=== PATIENT | female | born 1965 | race Caucasian/White ===

== ENCOUNTER 2016-11-29 21:18 | Inpatient (IN) | payer MEDICARE ==
--- NOTE | ~2016-11-29 | PN ---
Unit #: [id number] #: [id number] Patient: ARIANNA KELLER [id number] [facility] [address] [place] [address] [id number] I MR#: [id number] NAME: ARIANNA KELLER. ROOM: P259 Age: 51 Sex: F Admission Date: 11/29/2016 : 1965 Attending Physician: Cheryl Villa M.D. Admitting Physician: Cheryl Villa M.D. Primary Care Physician: Primary Care Physician Ami DANGELO NOTES DATE OF SERVICE: 12/01/2016 SUBJECTIVE Ms. Keller is a 51-year-old white female, who was seen today and chart was reviewed and case was discussed with the staff. She has been anxious, withdrawn, and rather seclusive to herself. Meanwhile, she has been cooperative with treatment recommendations and has been taking medications and tolerating them fairly well with no reported side effects. MENTAL STATUS EXAMINATION Middle-aged white female, who was casually dressed with fair personal hygiene, appears to be in no acute distress or discomfort. She was awake and alert on interaction with intact orientation. Her mood was anxious and depressed with congruent affect. Her speech was slow and restricted in content. She reports some suicidal ideation, but denies any homicidal ideation. Her insight and judgment remain slightly impaired. TREATMENT PLAN 1. We will continue on her current medications and treatment protocol and we will monitor her response and make further adjustments as needed. 2. We will continue to follow up. Dictated by... Irma Sofia/davis TD: 12/03/2016 06:55 JOB #: [id number] [facility] PROGRESS NOTES Page 1 of 1 X Cheryl Villa MD X PROGRESS NOTE
--- NOTE | ~2016-11-29 | DS ---
Unit #: [id number] #: [id number] Patient: ARIANNA KELLER [id number] [facility] [address] [place] [address] [id number] I MR#: [id number] NAME: ARIANNA KELLER. ROOM: P259 Age: 51 Sex: F Admission Date: 11/29/2016 : 1965 Discharge Date: 12/04/2016 Attending Physician: Cheryl Villa M.D. Primary Care Physician: Primary Care Physician No DISCHARGE SUMMARY IDENTIFYING DATA Ms. Keller is a 51-year-old , disabled white female who is a resident of [place], [place] and is very well known to us from previous multiple encounters and was self-referred to the hospital on a voluntary basis. DISCHARGE DIAGNOSES Psychiatric: Major depressive disorder, recurrent, moderate, without psychotic features. Medical: Cirrhosis of the liver, chronic pain. Stressors: Moderate psychosocial stressors. HISTORY OF PRESENT ILLNESS Please see initial psychiatric evaluation for details. PAST PSYCHIATRIC HISTORY Please see initial psychiatric evaluation for details. PAST MEDICAL HISTORY Please see initial psychiatric evaluation for details. HOSPITAL COURSE The patient was admitted to the adult psychiatric unit at [facility] phyllis Sotomayor and was oriented to the hospital environment. Routine p.r.n. medications were initiated, and she was started back on her home medications including her Elavil 100 mg at bedtime and was closely monitored. She was initially seen to be very withdrawn, depressed, and tearful, however, she was able to show a significant therapeutic response to the medications with improvement in depression and anxiety and was denying any suicidal ideations, intent, or plan and was willing to continue treatment on an outpatient basis and as such, it was decided that she will be maintained on current medications and will be discharged home. DISCHARGE MEDICATIONS Neurontin 800 mg q.i.d. for neuropathy, Elavil 100 mg at bedtime for depression, Proventil inhaler 2 puffs b.i.d. for asthma, aspirin 81 mg a day for coronary artery disease, Catapres 0.1 mg b.i.d. for hypertension, Cardizem 180 mg a day for hypertension, Lovenox 100 mg b.i.d. for hypercoagulability, and Colace 100 mg b.i.d. for constipation. DISCHARGE CONDITION Stable. PROGNOSIS Unit #: [id number] #: [id number] Patient: ARIANNA KELLER. Dictated by... Irma Sofia/davis TD: 12/04/2016 18:29 JOB #: [id number] DISCHARGE SUMMARY Page 1 of 1 X Cheryl Villa MD X DISCHARGE SUMMARY
--- NOTE | ~2016-11-29 | PN ---
Unit #: [id number] #: [id number] Patient: ARIANNA KELLER [id number] [facility] [address] [place] [address] [id number] I MR#: [id number] NAME: ARIANNA KELLER. ROOM: P259 Age: 51 Sex: F Admission Date: 11/29/2016 : 1965 Attending Physician: Cheryl Villa M.D. Admitting Physician: Cheryl Villa M.D. Primary Care Physician: Primary Care Physician Ami DANGELO NOTES DATE OF SERVICE 12/03/2016 DISCUSSION Ms. Keller is a 51-year-old white female with mood disorder who was seen today. Chart was reviewed and case was discussed with the staff. She has been anxious, withdrawn, and rather seclusive to herself. Meanwhile, she has been cooperative with treatment recommendations and has been taking the medications and tolerating them fairly well with no reported side effects. MENTAL STATUS EXAMINATION Middle-aged white female who is casually dressed with fair personal hygiene, appears to be in no acute distress or discomfort. She was awake and alert on interaction with intact orientation. Her mood is anxious and depressed with congruent affect. She denies any current suicidal or homicidal ideations and also denies any auditory or visual hallucinations. Her insight and judgment remain slightly impaired. TREATMENT PLAN 1. We will continue her on her current medications and treatment protocol. We will monitor her response and make further adjustments as needed. 2. We will continue to follow up. Dictated by... Cheryl Villa M.D. IAA/bzg TD: 12/04/2016 10:30 JOB #: [id number] Unit #: [id number] #: [id number] Patient: ARIANNA KELLER PROGRESS NOTES Page 1 of 1 X Cheryl Villa MD PROGRESS NOTE
--- NOTE | ~2016-11-29 | CO ---
Unit #: [id number] #: [id number] Patient: ARIANNA DEE [id number] [facility] [address] [place] [address] [id number] I MR#: [id number] NAME: ARIANNA DEE. ROOM: P259 Age: 51 Sex: F Admission Date: 11/29/2016 : 1965 Attending Physician: Cheryl Villa M.D. Primary Care Physician: Primary Care Physician No Consultation Date: 12/01/2016 CONSULTATION REPORT ORDERING PROVIDER Dr. Villa. REASON FOR CONSULTATION Pain. The patient was seen yesterday for her chronic pain and was prescribed Percocet 5 mg t.i.d. The patient was complaining because her home medications are for 10 mg of Percocet q.i.d. Her home medications were reviewed and it does appear that her primary care provider has been giving her 10 mg q.i.d. for at least a year. We will continue to prescribe for this dose and she needs to follow up with her primary care outpatient. Dictated by... Reny Peoples A.P.R.N. for Irma Elmore/davis TD: 12/01/2016 19:12 JOB #: [id number] CONSULTATION REPORT Page 1 of 1 X RENY PEOPLES APRN CONSULTATION REPORT
--- NOTE | ~2016-11-29 | PN ---
Unit #: [id number] #: [id number] Patient: ARIANNA KELLER [id number] [facility] [address] [place] [address] [id number] I MR#: [id number] NAME: ARIANNA KELLER. ROOM: P259 Age: 51 Sex: F Admission Date: 11/29/2016 : 1965 Attending Physician: Cheryl Villa M.D. Admitting Physician: Cheryl Villa M.D. Primary Care Physician: Primary Care Physician Ami DOE PROGRESS NOTES DATE December 02, 2016 DISCUSSION Ms. Keller is a 51-year-old white female, who was seen today and chart was reviewed and the case was discussed with the staff. She has been doing fairly well and has reported some improvement in her depression and anxiety and she has been calm and cooperative with the treatment recommendations. She has been taking the medications and tolerating them fairly well with no reported side effects. MENTAL STATUS EXAMINATION Middle-aged white female, who was casually dressed with fair personal hygiene and appears to be in no acute distress or discomfort. The patient was awake and alert on interaction with intact orientation. Her mood was anxious and depressed with a congruent affect. She denies any current suicidal or homicidal ideations, and also denies any auditory or visual hallucinations. Her insight and judgment remain slightly impaired. TREATMENT PLAN 1. We will continue her on her current medications and treatment protocol, and will monitor her response to the medications, and make further adjustments as needed. 2. We will continue to followup. Dictated by... Irma Sofia/eddie TD: 12/04/2016 05:11 JOB #: [id number] Unit #: [id number] #: [id number] Patient: ARIANNA KELLER PROGRESS NOTES Page 1 of 1 X Cheryl Villa MD PROGRESS NOTE
--- NOTE | ~2016-11-29 | CO ---
Unit #: [id number] #: [id number] Patient: MACI DEE [id number] [place] [address] [id number] I MR#: [id number] NAME: MACI DEE. ROOM: P259 Age: 51 Sex: F Admission Date: 11/29/2016 : 1965 Attending Physician: Cheryl Villa M.D. Consultation Date: 11/30/2016 CONSULTATION REPORT SUBJECTIVE Maci has complaints of chronic pain. She sees Dr. Herndon, who prescribes oxycodone 10 mg q.i.d. for her and she would like to have this restarted. On 11/21/2016, she went to [facility] after a fall and was diagnosed with a left hand fracture and a right shoulder dislocation. She currently has a cast on her left hand. She also has reports of recent liver biopsy and was found to be in liver failure and is having whole body pain as well. She has no other complaints. PHYSICAL EXAMINATION CARDIAC: Regular rate and rhythm. No murmur, gallop, or rub. RESPIRATORY: Clear to auscultation bilaterally. ABDOMEN: Bowel sounds positive in all quadrants. MUSCULOSKELETAL: Left hand casted after a fracture. ASSESSMENT AND PLAN Chronic and acute pain. We will begin oxycodone 5 mg p.o. q.8 hours p.r.n. pain. The patient is instructed to follow up with Dr. Herndon after discharge for continued prescriptions. No prescriptions will be given for oxycodone upon discharge. Dictated by... Aida Orr/davis TD: 11/30/2016 13:23 JOB #: [id number] CONSULTATION REPORT Page 1 of 1 X MELISSA LARA APRN X CONSULTATION REPORT
--- NOTE | ~2016-11-29 | HP ---
Unit #: [id number] #: [id number] Patient: MACI DEE [id number] [place] [address] [id number] MR#: [id number] NAME: MACI DEE. ROOM: P259 Age: 51 Sex: F Admission Date: 11/29/2016 : 1965 Attending Physician: Cheryl Villa M.D. Admitting Physician: Cheryl Villa M.D. Primary Care Physician: Primary Care Physician No HISTORY AND PHYSICAL HISTORY OF PRESENT ILLNESS Maci is a 51-year-old female admitted to [address] [place] [address] on 11/29/2016 for suicidal ideation and depression. PAST MEDICAL HISTORY 1. Anemia. 2. Type 2 diabetes. 3. Cirrhosis of the liver. 4. Hepatitis B and C. 5. Factor V Leiden. 6. History of afib. 7. Hypertension. 8. COPD. 9. GERD. 10. Patient reports possible cystic fibrosis. 11. Current left hand fracture. PAST SURGICAL HISTORY 1. Vaginal hysterectomy. 2. Cholecystectomy. 3. section x3. 4. Gastric bypass. ALLERGIES No known drug allergies. SOCIAL HISTORY Smokes 2 packs of cigarettes daily. No alcohol or illegal drug use. She is currently and living with her roommates. FAMILY HISTORY Noncontributory. REVIEW OF SYSTEMS CONSTITUTIONAL: No fever or chills. HEENT: Denies any sore throat, ear pain or runny nose. CARDIOVASCULAR: Denies chest pain, irregular heart rhythm or palpitations. CHEST: Denies shortness of breath or cough. No hemoptysis. GASTROINTESTINAL: Denies nausea, vomiting, diarrhea or chronic constipation. ENDOCRINE: Denies history of increased thirst or urination. No recent significant weight loss or gain. GENITOURINARY: Denies dysuria, frequency, or hematuria. Unit #: [id number] #: [id number] Patient: MACI DEE SKIN: Denies any rashes. HEMATOLOGIC: Denies history of increased bleeding or bruising. MUSCULOSKELETAL: Denies any hot, swollen joints. No generalized muscle pain. NEUROLOGIC: Denies problems with vision or speech. No frequent, severe headaches. No numbness, tingling or weakness in any extremities. Denies loss of bladder or bowel control. CURRENT MEDICATIONS 1. Gabapentin. 2. Elavil. 3. Proventil. 4. Ecotrin. 5. Catapres. 6. Lactulose. 7. Cardizem. 8. Lovenox. 9. Vistaril. 10. Viread. 11. Colace. PHYSICAL EXAMINATION GENERAL: VITAL SIGNS: Blood pressure 131/88, heart rate 109, temperature 97.8. HEIGHT: 5 feet 4. WEIGHT: 204 pounds. SKIN: Warm and dry without rash or lesion. HEENT: Normocephalic. TMs not viewed. Oral and nasal passages clear. Conjunctivae clear. PERRLA. EOMs intact. NECK: Supple without lymphadenopathy or thyromegaly. HEART: Regular rate and rhythm without murmur. LUNGS: Clear. ABDOMEN: Soft, nontender, without masses or hepatosplenomegaly. : Not done. EXTREMITIES: Fracture of her left hand. NEUROLOGICAL: Grossly within normal limits. Cranial Nerves: II: Visual hargrove are intact. III, IV AND : Extraocular movements are intact. Pupils are equal, round and reactive to light. V: Facial sensation is grossly normal. VII: Facial movements and expression are normal. VIII: Auditory acuity grossly intact. IX, X: Uvula is midline. Phonation is normal. XI: Patient shrugs shoulders and turns head normally. XII: Tongue protrudes in the midline. Sensory and Motor Function: Sensory and motor sensation is grossly normal. Motor: moves all extremities well. Coordination: Gait is normal. Deep Tendon Reflexes: Intact. IMPRESSION 1. Psychiatric admission. 2. Fracture of the left hand. 3. Anemia. 4. Type 2 diabetes. 5. Cirrhosis of the liver. 6. Hepatitis B and C. 7. Factor V Leiden. 8. Possible cystic fibrosis. 9. Morbid obesity. 10. History of afib. Unit #: [id number] #: [id number] Patient: MACI DEE 11. Hypertension. 12. Chronic obstructive pulmonary disease. 13. Gastroesophageal reflux disease. RECOMMENDATIONS PSYCHIATRIC: Per psychiatrist. MEDICAL: No contraindications to participate in facility's activities. MEDICAL PROGNOSIS Good. MEDICAL CONDITION Stable. Dictated by... Aida Orr/ramila TD: 11/30/2016 17:43 JOB #: [id number] HISTORY AND PHYSICAL Page 1 of 1 X MELISSA LARA APRN HISTORY AND PHYSICAL
--- NOTE | ~2016-11-29 | A ---
[facility] Nutrition Therapy DATE: 12/02/16 Patient: ARIANNA DEE Physician: CARMINE Address: [address] Room/Bed: [facility] [facility], Zip: [place] [address] Admit Date: 11/29/16 Date of : [birth year] Height: 5 4 Weight: [phone] NUTRITIONAL ASSESSMENT: REASON: CONSULT "PER DOCTOR" PATIENT ADMITTED FOR SI AND DEPRESSION PMH: CHF, HTN, LONG HX POLYSUBSTANCE ABUSE, A-FIB, HX OF CVA, COPD, GERD, WITHDRAWL SEIZURES, HEPATITIS B AND C, DM2, CHRONIC PAIN, HX GASTRIC BYPASS, LIVER CIRRHOSIS Anthropometrics: HT: 5'4", WT: 204#, BMI: 35, %IBW: 170 Labs: 12/02/16- NUTRITION LABS REVIEWED, NOTHING SIGNIFICANT Meds: ROXICODONE, VISTARIL, AMBIEN, NEURONTIN Assessment: CHART REVIEWED, EVENTS NOTED. PATIENT IS A 51 Y/O FEMALE ADMITTED FOR SI AND DEPRESSION. PATIENT IS CURRENTLY ON DISABILITY, LIVES IN AN APPARTMENT, SMOKES 1.5-2 PPD, AND DENIES CURRENT SUBSTANCE ABUSE. PATIENT IS POSITIVE FOR SI AND STATED THAT HER DOCTOR GAVEHER 6-8 MONTHS TO LIVE D/T LIVER FAILURE. UPON ADMIT PATIENT STATED AN "OKAY" APPETITE WITH FLUCTUATING WEIGHTS, AND THAT SHE'S HAD A 70# WEIGHT LOSS OVER LAST 6 MONTHS. WEIGHT HX PER MEDITECH SHOWS A 9# WEIGHT INCREASE OVER LAST 3 MONTHS, AND FLUCTUATING WEIGHTS BEWTEEN 195-245# OVER LAST 5 YEARS. NURSING REPORTS GOOD PO INTAKES. CONSULT ONLY STATES "PER DOCTOR" HOWEVER AFTER FURTHER INVESTIGATION AND DISCUSSING PATIENT WITH NURSING, THEY STATED PATIENT WOULD JUST LIKE MORE FOOD. PATIENT IS CURRENTLY ON A REGULAR DIET WITH LARGE PORTION ENTREES. PATIENT HAS VERY FREQUENT ADMISSIONS TO THIS FACILITY AND HAS A HX OF POOR COMPLIANCE WITH OUTPATIENT TREATMENT RECOMMENDATIONS. SHE HAS ALSO BEEN NON-COMPLIANT WITH MEDICATIONS PRIOR TO ADMIT. RD ASSESSED PATIENT 07/24- NOTE REVIEWED. PATIENT HAD A FALL ON 11/21/16 AND SUSTAINED A FRACTURE TO L-HAND AND A DISLOCATED R-SHOULDER. THERE ARE CURRENTLY NO SKIN OR GI ISSUES NOTED ATT AND PATIENT DID NOT SCORE ANY NUTRITIONAL RISK POINTS. PATIENT'S GLUCOSE LEVELS ARE WNL AND HER AST AND ALT LAB VALUES ARE ONLY SLIGHTLY ELEVATED. Dx: EXCESSIVE CALORIE INTAKE R/T CURRENT CONDITION AEB HIGH BMI, >110% IBW, 9# WEIGHT GAIN X 3 MONTHS Intervention: 1. REGULAR DIET WITH LARGE PORTIONS, 2. MEDS PER MD, 3. PSYCH Monitoring, Evaluation and Goals: 1. ADEQUATE PO INTAKES >50% OF MEALS 2. PREVENT, CORRECT MICRO/MACRO NUTRIENT DEFICIENCIES 3. PROMOTE A STEADY WEIGHT LOSS TOWARDS A HEALTHY BMI OF 19-25, PREVENT FURTHER WEIGHT [facility] Nutrition Therapy DATE: 12/02/16 Patient: ARIANNA DEE Physician: CARMINE Address: [address] [place] [address] Room/Bed: [id number], Zip: [place] [address] Admit Date: 11/29/16 Date of : [birth year] Height: 5 4 Weight: [phone] GAIN MONITOR: WEIGHTS, LABS, PO/FLUID INTAKES Recommendations: 1. CONTINUE REGULAR DIET TOLERATED. CONSIDER ADDING HEART HEALTHY TO CURRENT DIET ORDER TO PROMOTE A STEADY WEIGHT LOSS TOWARDS A HEALTHY BMI OF 19-25 2. RECOMMEND D/CING LARGE PORTION ENTREES D/T NO NUTRITIONAL NEED FOR INCREASED CALORIC INTAKE. IF PATIENT HAS C/O HUNGER PLEASE OFFER HEALTHY SNACKS BETWEEN MEALS 3. ENCOURAGE ADEQUATE PO AND FLUID INTAKES RD TO F/U PER PROTOCOL AND PRN R/T PATIENT MILDLY COMPROMISED Respectfully, YANIQUE GONSALEZ, RD, LD [employer] [facility] cc: client file
--- NOTE | ~2016-11-29 | PA ---
Unit #: [id number] #: [id number] Patient: ARIANNA KELLER [id number] [facility] [address] [place] [address] [id number] MR#: [id number] NAME: ARIANNA KELLER. ROOM: P259 Age: 51 Sex: F Admission Date: 11/29/2016 : 1965 Date of Assessment: Attending Physician: Cheryl Villa M.D. Admitting Physician: Cheryl Villa M.D. PSYCHIATRIC ASSESSMENT DATE OF SERVICE 11/30/2016. IDENTIFYING DATA Ms. Keller is a 51-year-old disabled white female, who is a resident of [place], [place], and is very well known to us from previous multiple encounters and was self-referred to the hospital on a voluntary basis. CHIEF COMPLAINT "Well, I have had several things going on last month. I have been trying to get my life together." HISTORY OF PRESENT ILLNESS Ms. Keller is a 51-year-old white female with history of mood disorder, who was self-referred to the hospital reporting increasing depression and stated "I have cirrhosis. My sons are fighting heroin, drugs, and alcohol use, but I got straight. Doctors told me I have 6 to 8 months to live. The hepatitis B and C is killing me. I had a biopsy done and I might have cystic fibrosis. My mother and left everything to my brother and she got mad at me and cut me out of my will and I moved into a new apartment and they are telling me I cannot take care of myself. I fell out and broke my arm and dislocated my shoulder. I'm fighting my sobriety and I want to use and kill myself. I have my kids mostly straight from heroin. I fought all these years and now I'm trying to do right and I have a sentence, my mom did that to me. The hepatitis B is affecting my organs and the cirrhosis is putting the nail in my coffin." She reports that she knows that she is dying and she was getting things together. She stated that she got herself an apartment and TV and furniture and now she finds out that she has been given less than a year to live and she does not want to slowly and therefore she wants to kill herself quickly. SUBSTANCE ABUSE HISTORY The patient has a history of alcohol abuse in the past, though denies any current substance abuse issues. PAST PSYCHIATRIC HISTORY The patient has had a history of numerous and multiple inpatient psychiatric hospitalizations at [facility] and other facilities, and review of the medical records indicate that currently she is not active in any treatment program and is not seeing a psychiatrist, though she is supposed to be on psychotropic medications. Unit #: [id number] #: [id number] Patient: ARIANNA KELLER PAST MEDICAL HISTORY The patient's medical history is significant for cirrhosis of the liver and chronic pain. ALLERGIES No known medication allergies. PERSONAL AND SOCIAL HISTORY A 51-year-old white female, who reports that she is and disabled and lives by herself and has poor social support system. MENTAL STATUS EXAMINATION Middle-aged white female, who was casually dressed with a fair personal hygiene, appears to be in no acute distress or discomfort. She was awake and alert with impaired attention and concentration. Her mood was anxious and depressed with a congruent affect. Her speech was slow and restricted in content. Her thought processes were disorganized with some looseness of associations and flight of ideas and paranoid ideations. Her insight and judgment remain significantly impaired. DIAGNOSTIC IMPRESSION Psychiatric: Major depressive disorder, recurrent, moderate, without psychotic features. Medical: Cirrhosis of the liver and chronic pain. Stressors: Moderate psychosocial stressors. TREATMENT PLAN 1. The patient has presented with a history of substance abuse and mood disorder and has been decompensating and will need inpatient hospitalization for detoxification, safety, and stabilization. We will start her back on her home medications and we will adjust the medications and monitor response. 2. Supportive therapy was provided to the patient. ESTIMATED LENGTH OF STAY 5 to 7 days. ABILITY TO HELP SELF Limited. WILLINGNESS TO HELP SELF The patient appears to be willing to help self. STRENGTHS 1. Communicative. 2. Cooperative. PROBLEMS 1. Chronic dysphoric symptoms. 2. Poor social support system. DISCHARGE CRITERIA This will be contingent upon the patient's ability to show resolution of her depression and anxiety and her ability to stay safe to herself, particularly after discharge from the hospital. Dictated by... Unit #: [id number] #: [id number] Patient: ARIANNA KELLER Irma Sofia/davis TD: 11/30/2016 15:03 JOB #: [id number] PSYCHIATRIC ASSESSMENT Page 1 of 1 X Cheryl Villa MD PSYCHIATRIC ASSESSMENT
[2016-11-30 12:08] LABS: URINE APPEARANCE CLOUDY; URINE BILIRUBIN NEG (NEG); URINE BLOOD NEG (NEG); URINE COLOR YELLOW; URINE GLUCOSE NEG (NEG); URINE KETONE NEG (NEG); URINE LEUKOCYTE ESTERASE 2+ (NEG); URINE NITRATE NEG (NEG); URINE PH 5.5 (5-8); URINE PROTEIN NEG (NEG)
[2016-11-30 12:12] LABS: URBCS1 AUWI 0-2 /[HPF] (0-2); URINE BACTERIA AUWI 1+ (NEGATIVE); URINE SQUAMOUS EPITHELIAL CELL FEW /[HPF]
[2016-11-30 12:33] LABS: URINE CRYSTALS CALCIUM OXALATE /[HPF]
[2016-11-30 12:36] LABS: AMPHETAMINE NEG (NEG); BARBITURATES NEG (NEG); BENZODIAZEPINES POS (NEG); COCAINE NEG (NEG); MARIJUANA NEG (NEG); OPIATES NEG (NEG); TRICYCLIC ANTIDEPRESSANTS NEG (NEG); U METHADONE NEG (NEG)
[2016-12-02 09:19] LABS: BASOPHIL% 0.5 % (0-2.5); EOSINOPHIL# 0.1 X10e3 (0-0.7); EOSINOPHIL% 2.6 % (0.0-7.0); HEMATOCRIT 36.8 % (35.0-45.0); HEMOGLOBIN 11.5 gm/dL (12.0-16.0); LYMPHOCYTE# 1.3 X10e3 (1.0-3.5); LYMPHOCYTE% 39.1 % (17.0-45.0); MEAN CELL VOLUME 78.6 FL (83-96); MEAN CORPUSCULAR HEMOGLOBIN 24.7 PG (28-34); MEAN CORPUSCULAR HGB CONC 31.4 g/dL (30-36); MEAN PLATELET VOLUME 8.3 FL (6.5-11.5); MONOCYTE# 0.3 X10e3 (0-1.0); MONOCYTE% 7.9 % (3.0-12.0); NEUTROPHIL# 1.7 X10e3 (1.5-7.1); NEUTROPHIL% 49.9 % (40-75); PLATELET COUNT 215 X10e3 (140-420); RED BLOOD COUNT 4.68 X10e (3.90-5.30); RED CELL DISTRIBUTION WIDTH 20.3 % (11.0-15.5); WHITE BLOOD COUNT 3.4 X10e3 (4.0-10.5)
[2016-12-02 09:44] LABS: DIFF IND NO
[2016-12-02 09:45] LABS: THYROID STIMULATING HORMONE 0.77 uIU/ml (0.34-5.60)
[2016-12-02 09:49] LABS: ALBUMIN SERUM 3.5 g/dL (3.5-5.0); BILIRUBIN,TOTAL 0.3 mg/dL (0.2-2.0); BUN/CREATININE RATIO 18.57; CALCIUM SERUM 8.8 mg/dL (8.4-10.2); CREATININE SERUM 0.7 mg/dL (0.6-1.4); GLOM FILT RATE Estimated 98.9 mL/min (>60); POTASSIUM 4.6 mmol/L (3.5-5.1); PROTEIN TOTAL SERUM 6.4 g/dL (6.0-8.3)
[2016-12-02 09:51] LABS: FREE THYROXIN (T4) 0.62 ng/dL (0.58-1.64)
== END 2016-12-04 16:30 | disposition home or self-care (01) | DRG 885 ==
LOC: P2L 21:18
PROVIDERS: Psychiatry & Neurology Psychiatry
DX: F33.1 Major depressive disorder, recurrent, moderate (principal); D68.51 Activated protein C resistance; K74.60 Unspecified cirrhosis of liver; B19.10 Unspecified viral hepatitis B without hepatic coma; G89.29 Other chronic pain; B19.20 Unspecified viral hepatitis C without hepatic coma; I48.91 Unspecified atrial fibrillation; I10 Essential (primary) hypertension; J44.9 Chronic obstructive pulmonary disease, unspecified; K21.9 Gastro-esophageal reflux disease without esophagitis; Z90.710 Acquired absence of both cervix and uterus; Z90.49 Acquired absence of other specified parts of digestive tract; Z98.84 Bariatric surgery status; F17.210 Nicotine dependence, cigarettes, uncomplicated; S62.92XA Unspecified fracture of left hand, initial encounter for closed fracture
CPT/HCPCS: 80053; 80307; 81003; 82947; 84439; 84443; 85025; J1650

== ENCOUNTER 2017-02-21 16:14 | Inpatient (IN) | payer MEDICARE ==
--- NOTE | ~2017-02-21 | DS ---
Unit #: [id number] #: [id number] Patient: MACI KELLER [id number] [address] [address] [id number] I MR#: [id number] NAME: MACI KELLER. ROOM: 237 Age: 51 Sex: F Admission Date: 02/21/2017 : 1965 Discharge Date: 02/26/2017 Attending Physician: Tosin Barakat M.D. Primary Care Physician: No Primary Care Physician DISCHARGE SUMMARY FINAL DIAGNOSES 1. Altered mental status, which is resolved. 2. Urinary tract infection. Urine culture positive for enterococcus. Patient is on ampicillin for urinary tract infection. 3. Elevated liver enzymes with history of cirrhosis. 4. History of cerebrovascular accident. 5. History of chronic thrombocytopenia. 6. Hypokalemia and hypomagnesemia which is improved. 7. Hyponatremia, which is resolved. 8. Polysubstance abuse. 9. Depression disorder. 10. Anemia. 11. Factor V Leiden positive. 12. Long-term anticoagulation therapy. 13. History of multiple deep venous thromboses. DISCHARGE MEDICATIONS 1. Lovenox 40 mg subcutaneous q.12. 2. Coumadin 5 mg daily. 3. Ampicillin 500 mg q.8 for five days. 4. Oxycodone, continue home dose. 5. Lactulose 15 mL q.i.d. Please note, patient was on Neurontin, Haldol, Ambien, and Zyprexa during hospitalization. We are going to consult Dr. Crump about the discharge medication confirmation. CONSULTATIONS DURING HOSPITALIZATION 1. Dr. Gwyn Crump from psych services. 2. Dr. Eda Llanos from hematology services. 3. Dr. Janusz Cheng, admitting physician. DIAGNOSTIC STUDIES LABORATORY: Lab workup on discharge: Sodium 141, potassium 3.9, chloride 107, BUN 9, creatinine 0.6. AST 226, ALT 182, alkaline phosphatase 257. PT/INR on discharge is 13.2 and 1.2. CBC on discharge: WBC 3.2, hemoglobin 10.3, hematocrit 32.7, platelet count 110,000. Urine culture positive for enterococcus species, more than 100,000 colonies sensitive to ampicillin. Urine drug screen was positive for benzodiazepines, cocaine, amphetamines, opiates, and TCA. HOSPITAL COURSE Ms. Maci Keller is a 51-year-old female, who was admitted by my colleague, Dr. Winter, with the diagnosis of acute mental status changes which was Unit #: [id number] #: [id number] Patient: MACI KELLER S multifactorial secondary to polysubstance abuse, UTI, hypokalemia, acute kidney injury. Patient was admitted to med/surg unit due to the question of new CVA, which has been ruled out. Patient has had CVA in the past. IV fluids were started. Coumadin and Lovenox were started (1) . Patient is on chronic Coumadin treatment which was subtherapeutic. Patient will need ongoing treatment with anticoagulation therapy as patient has had multiple DVTs in the past. Patient also has thrombocytopenia which is most likely secondary to sequestration of platelets in the liver. Patient does have cirrhosis of liver. Dr. Llanos had discussion with patient regarding the risk of severe thrombosis and bleeding. Patient does verbalize understanding. Patient is feeling much better at this time and is being discharged home on above medications to follow up with Dr. Llanos as outpatient. PHYSICAL EXAMINATION ON DISCHARGE VITAL SIGNS: Blood pressure is 110/71, respiratory rate 20, pulse 99, temperature 97.7, oxygen saturation is 98%. HEENT: Head is normocephalic. CHEST: Fair air entry. CARDIOVASCULAR: Regular rhythm. ABDOMEN: Soft. DISCHARGE INSTRUCTIONS 1. The patient is being discharged home in stable condition. 2. Followup primary care provider in one week. 3. Followup Dr. Llanos in two to three days. 4. Pro time to be done in three days and adjust the dose of Coumadin as required. Dictated by... Irma Bland TD: 02/27/2017 09:47 JOB #: [id number] DISCHARGE SUMMARY Page 1 of 1 X Tosin Barakat MD X DISCHARGE SUMMARY
--- NOTE | ~2017-02-21 | CT71 ---
[facility] A Service of [facility] RADIOLOGY TEXT RESULTS PATIENT: ARIANNA DEE LOCATION: [facility] 237-01 : [birth year] UNIT #: [id number] AGE: [address]: Tosin Barakat MD SEX: F ORDER DR: [id number] [facility] [address] [facility]. [place], [place] [address] [id number] I MR#: [id number] Acc #: [id number] NAME: ARIANNA DEE. : 1965 SEX: F STUDY DATE/TIME: 02/21/2017 17:24 UNIT: CEDOF ROOM: 08177 STUDY DESCRIPTION: CT Head Wo Contrast Attending Physician: Tosin Barakat M.D. Ordering Physician: Mary Jane Medina M.D. Primary Care Physician: No Primary Care Physician MEDICAL IMAGING REPORT This report is preliminary unless electronic signature is present EXAM CT head 02/21/17. HISTORY Patient states left facial droop and trouble concentrating lethargic x today. TECHNIQUE This CT exam was performed with one or more of the following radiation dose reduction techniques: automatic exposure control, adjustment of mA and/or kV according to patient size, and iterative reconstruction. CT head performed skull base through vertex without intravenous contrast. Comparison 07/21/2016. FINDINGS Some images degraded by streak artifact. Brainstem is unremarkable. Cerebellum and cerebral hemispheres show normal garcia matter - white matter differentiation. Mild periventricular deep white matter tract probable sequelae of chronic microvascular ischemia. More localized areas of hypodensity in the bilateral frontal radiograph were present on prior examination as well and are unchanged. These likely represent focal areas of white matter chronic ischemic change. There are 2 subtle areas of new hypodensity in the right mckenzie radiata. These measure up to about 3-4 mm in diameter. Not clearly seen on prior examination. Probably reflect focal areas of small vessel ischemic change. There hypodensity would suggest at least subacute time course. Chronic time course not excluded. Best further characterized with MRI. The midline structures are nondisplaced. No acute basal ganglia abnormality. Ventricles, cisterns and sulci show mild generalized enlargement consistent with mild generalized atrophy disproportionate to patient's stated age. Correlate with risk factors. There are vertebral arterial calcifications. No intra STS. [facility] A Service of [facility] RADIOLOGY TEXT RESULTS PATIENT: ARIANNA DEE LOCATION: [facility] 237-01 : 61 UNIT #: [id number] AGE: [address]: Tosin Barakat MD SEX: F ORDER DR: or extraaxial mass effect or abnormal intracranial fluid collection. The intraorbital soft tissues are unremarkable in visualized extent. Visualized paranasal sinuses and mastoid air cells are clear. IMPRESSION 1. Compared to July 2016, there are 2 new subtle hypodensities in the right mckenzie radiata, the larger measuring approximately 3-4 mm in maximum diameter, and the smaller measuring about 3 mm in maximum diameter. These are most likely small foci of white matter ischemic change. There hypodensity suggests at least subacute time course. Chronic time course not excluded. Best further characterized with MRI if patient is candidate. No other new findings. 2. Chronic findings include the following: Mild underlying periventricular and deep white matter tract probable sequelae of chronic microvascular ischemia, focal areas of probable microvascular ischemia in the bilateral posterior mckenzie radiata, mild generalized atrophy disproportionate to patient's stated age, vertebral arterial calcifications. See remainder findings above. Dictated by... Hira Aceves M.D. THIS IS AN ELECTRONICALLY VERIFIED REPORT Hira Aceves M.D. at 02/26/2017 10:15 AM Roger TD: 02/21/2017 22:31 JOB #: [id number] MEDICAL IMAGING REPORT Page 1 of 1 COPY
--- NOTE | ~2017-02-21 | CR72 ---
[facility] A Service of [facility] RADIOLOGY TEXT RESULTS PATIENT: ARIANNA DEE LOCATION: [place] [address]-01 : [birth year] UNIT #: [id number] AGE: [address]: Tosin Barakat MD SEX: F ORDER DR: [id number] [facility] [address] [facility]. [place], [place] [address] [id number] I MR#: [id number] Acc #: [id number] NAME: ARIANNA DEE : 1965 SEX: F STUDY DATE/TIME: 02/22/2017 18:24 UNIT: [facility] ROOM: 464 STUDY DESCRIPTION: CR Chest Single View Portable Attending Physician: Tosin Barakat M.D. Ordering Physician: Tosin Barakat M.D. Primary Care Physician: No Primary Care Physician MEDICAL IMAGING REPORT This report is preliminary unless electronic signature is present EXAM Single view of the chest dated 02/22/2017. COMPARISON Single view of the chest dated 12/13/2016. HISTORY Acute renal failure with mild congestion today. PICC placement. FINDINGS Frontal view of the chest was obtained. New right subclavian approach PICC line catheter is noted with the tip in the region of the SVC, adequate. Lungs appear to be relatively well aerated without any new cardiopulmonary disease when compared to the study from 2 months ago. Redemonstrated are the postoperative changes in the region of the GE junction and upper abdomen. Dictated by... Chaka Stewart M.D. THIS IS AN ELECTRONICALLY VERIFIED REPORT Chaka Stewart M.D. at 02/24/2017 8:33 PM CPR/rnr TD: 02/22/2017 22:56 JOB #: [id number] MEDICAL IMAGING REPORT Page 1 of 1 COPY
--- NOTE | ~2017-02-21 | CO ---
Unit #: [id number] #: [id number] Patient: MACI KELLER [id number] [address] [address] [id number] I MR#: [id number] NAME: MACI KELLER. ROOM: 237 Age: 51 Sex: F Admission Date: 02/21/2017 : 1965 Attending Physician: Tosin Barakat M.D. Consultation Date: 02/24/2017 CONSULTATION REPORT REASON FOR CONSULTATION Followup. DISCUSSION Ms. Maci Keller is a 51-year-old white female, seen in room 464 bed 1 on 02/24/2017. The patient has a sitter, reports that she is feeling better. The patient denied any current thoughts of harming self or others, pleasant and cooperative. Reports medication is helping her. The patient was tested positive for multiple drugs. Upon admission, positive for benzodiazepine, cocaine, amphetamine, opiates. Complete review of systems is unremarkable. The patient dressed casually, sitting comfortably in bed. The patient was seen on 02/24/2017 in room 464 bed 1 at [facility]. The patient was able to contract for safety. The patient's vital signs; temperature 98.5, pulse 107, respirations 20, blood pressure 117/76, oxygen saturation 100%. MENTAL STATUS EXAMINATION General appearance, the patient dressed in hospital attire, lying comfortably in bed. Attention span and concentration, fair. Oriented in time, place, and person. Mood and affect were labile. Speech, regular rate and coherent. Thought process, goal directed. Thought content, the patient denied any thoughts of harming self or others or any psychotic symptom. Recent and remote memory, fair. Language, intact. Fund of knowledge, fair. Insight and judgment, fair to slightly impaired. DIAGNOSES Psychiatric: Major depressive disorder, recurrent, severe, F33.2; opioid use disorder, severe, F11.20. Secondary diagnosis: Deferred. ASSESSMENT AND PLAN 1. Supportive psychotherapy and psychoeducation provided to the patient. 2. Educated about benefits and side effects of medication and course and prognosis of illness. 3. Advised to continue with current treatment. If needed, consider further adjustment of medication and discontinue 72-hour hold and one-to-one monitoring at this time as the patient is able to contract for safety. Please feel free to call if any questions telephone #[phone]. Dictated by... Gwyn Crump M.D. Unit #: [id number] #: [id number] Patient: MACI KELLER DAREN/modl TD: 02/25/2017 07:51 JOB #: [id number] CONSULTATION REPORT Page 1 of 1 X Gwyn Crump MD X CONSULTATION REPORT
--- NOTE | ~2017-02-21 | CO ---
Unit #: [id number] #: [id number] Patient: MACI KELLER [id number] [place] [address] [place], [place] [address] [id number] I MR#: [id number] NAME: MACI KELLER. ROOM: 237 Age: 51 Sex: F Admission Date: 02/21/2017 : 1965 Attending Physician: Tosin Barakat M.D. Consultation Date: 02/25/2017 CONSULTATION REPORT REASON FOR CONSULTATION Followup. DISCUSSION Ms. Maci Keller is a 51-year-old white female, seen in room 237, bed 1 on 02/25/2017 at [facility]. The patient has a history of depression. The patient was positive for opiates, cocaine, and benzodiazepine at the time of admission. The patient reports feeling better. Denied any suicidal or homicidal ideation. Denied any psychotic symptom, but still somewhat anxious and nervous. The patient was cooperative. Reports decreased appetite, did not eat breakfast or lunch. The patient was able to contract for safety. The patient's vital signs; temperature 98.8, pulse 104, respirations 16, blood pressure 108/94 and oxygen saturation 98%. REVIEW OF SYSTEMS Complete review of systems unremarkable. MENTAL STATUS EXAMINATION General appearance; the patient dressed in hospital attire, lying comfortably in bed. Attention span and concentration, fair. Speech, regular rate and coherent. Oriented in time, place, and person. Mood and affect; labile, sad, dysphoric, anxious. Thought process, goal directed. The patient denied any thoughts of harming self or others or any psychotic symptom. Recent and remote memory, fair. Language, intact. Fund of knowledge, fair. Insight and judgment, fair to slightly impaired. DIAGNOSES Psychiatric: 1. Major depressive disorder, recurrent, severe, F33.2. 2. Opioid use disorder, severe, F11.20. 3. 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 4. Cocaine use disorder, severe, F14.20. ASSESSMENT/PLAN 1. Supportive psychotherapy and psychoeducation provided to the patient. 2. Educated about benefits and side effects of medication and course and prognosis of illness. 3. Advised to continue with current medication and make further adjustment of medication if needed. Please feel free to call if any questions, telephone #[phone]. Dictated by... Unit #: [id number] #: [id number] Patient: KELLERMACIIrma Agosto/davis TD: 02/25/2017 23:00 JOB #: [id number] CONSULTATION REPORT Page 1 of 1 X Gwyn Crump MD CONSULTATION REPORT
--- NOTE | ~2017-02-21 | CO ---
Unit #: [id number] #: [id number] Patient: MACI KELLER [id number] [address] [address] [id number] I MR#: [id number] NAME: MACI KELLER. ROOM: 237 Age: 51 Sex: F Admission Date: 02/21/2017 : 1965 Attending Physician: Tosin Barakat M.D. Consultation Date: 02/26/2017 CONSULTATION REPORT REASON FOR CONSULTATION Followup. DISCUSSION Ms. Maci Keller is a 51-year-old white female, seen in room 237, bed 1 on 02/26/2017. The patient reports feeling better with decrease in anxiety. Denied any suicidal or homicidal ideation. Denied any psychotic symptom. The patient is compliant with medication. The patient diagnosed with major depressive disorder; tested positive for opiates, sedative hypnotics and cocaine at the time of admission. The patient reports making progress. REVIEW OF SYSTEMS Complete review of systems unremarkable. The patient's vital signs; temperature 97.7, pulse 99, respiratory rate 21, blood pressure 110/71, oxygen saturation 98%. MENTAL STATUS EXAMINATION General appearance, the patient dressed casually in hospital attire. Attention span and concentration, fair. Speech, regular rate and coherent. Oriented in time, place, and person. Mood and affect were sad and dysphoric, but able to smile. Thought process, coherent. Thought content, the patient denied any thoughts of harming self or others. Recent and remote memory, fair. Language, intact. Fund of knowledge, fair. Insight and judgment, fair to slightly impaired. DIAGNOSES Psychiatric: Major depressive disorder, recurrent, severe, F33.2. Opioid use disorder, severe, F11.20. Sedative-hypnotic use disorder, severe, F13.20. Cocaine use disorder, severe, F14.20. ASSESSMENT/PLAN 1. Supportive psychotherapy and psychoeducation provided to the patient. 2. Educated about benefits and side effects of medication and course and prognosis of illness. 3. Advised to continue with current medication with a plan for our patient to follow up in CD-IOP program at [facility]. The patient was given Crisis Line #[phone]. Please feel free to call if any question, telephone [phone]. Dictated by... Gwyn Crump M.D. Unit #: [id number] #: [id number] Patient: MACI KELLER DAREN/davis TD: 02/27/2017 05:53 JOB #: [id number] CONSULTATION REPORT Page 1 of 1 X Gwyn Crump MD X CONSULTATION REPORT
--- NOTE | ~2017-02-21 | CR150 ---
[facility] A Service of [facility] RADIOLOGY TEXT RESULTS PATIENT: ARIANNA DEE LOCATION: [facility]4-01 : [birth year] UNIT #: [id number] AGE: [address]: Tosin Barakat MD SEX: F ORDER DR: [id number] [facility] [address] [facility]. [place], [place] [address] [id number] I MR#: [id number] Acc #: [id number] NAME: ARIANNA DEE : 1965 SEX: F STUDY DATE/TIME: 02/22/2017 14:18 UNIT: [facility] ROOM: Critical access hospital STUDY DESCRIPTION: CR Hip Min 2 Views Lt Attending Physician: Tosin Barakat M.D. Ordering Physician: Janusz Cheng M.D. Primary Care Physician: No Primary Care Physician MEDICAL IMAGING REPORT This report is preliminary unless electronic signature is present EXAM Left hip, 2 views. HISTORY Hip pain for 2 days after a fall. FINDINGS AP and oblique examination of the hip shows adequate mineralization of the bones and a normal anatomic relationship of the femoral head with the acetabulum. There are no hypertrophic changes, fractures, dislocation, or joint capsular distension. No radiopaque foreign body is present about the soft tissues of the hip. IMPRESSION Normal left hip. Dictated by... Alex Goodwin M.D. THIS IS AN ELECTRONICALLY VERIFIED REPORT Alex Goodwin M.D. at 02/22/2017 10:49 PM SANTY/stacie TD: 02/22/2017 17:08 JOB #: [id number] MEDICAL IMAGING REPORT Page 1 of 1 COPY
--- NOTE | ~2017-02-21 | CO ---
Unit #: [id number] #: [id number] Patient: ARIANNA DEE [id number] [address] [address] [id number] I MR#: [id number] NAME: ARIANNA DEE ROOM: 464 Age: Sex: F Admission Date: 02/21/2017 : 1965 Attending Physician: Tosin Barakat M.D. Primary Care Physician: Primary Care Physician No CONSULTATION REPORT CHIEF COMPLAINT Cerebrovascular accident at the age of 38, Factor V Leiden, long-term Coumadin, cirrhosis of the liver, recent Lovenox, history of multiple DVTs, came with confusion. HISTORY OF PRESENT ILLNESS This is a 38-year-old female who had cerebrovascular accident at the age of 38. She is positive for Factor V Leiden. She has been taking Coumadin for a long time. Recently she developed cirrhosis of the liver secondary to excessive drinking. Her anticoagulation was changed to Lovenox. The patient has had multiple DVTs in the past. The patient came in with confusion prolonged of memory and balance. CT of the head showed two new hypodense areas possible subacute infarct. MRI is pending. The patient is feeling better and asking for the pain medication. Please note that she has been taking Lovenox 100 mg subcu b.i.d. However, today, CBC shows WBC 5.4, hemoglobin 8.6, MCV 79, platelets 27. Her creatinine is 0.9, AST 246, ALT 222, alkaline phosphatase 57. I reviewed the peripheral blood smear, there are no schistocytes, no blood, platelet number is low. Morphology normal. PAST MEDICAL HISTORY Factor V Leiden, cerebrovascular accident, cirrhosis of the liver, thrombocytopenia, recurrent DVTs. ALLERGIES None. SOCIAL HISTORY She has been a smoker of one pack per day for more than ten years. 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 FAMILY HISTORY Grandmother has cerebrovascular accident, mother coronary artery disease. SURGICAL HISTORY Gastric bypass when she was in thirties. She use to weigh 350 pounds, Unit #: [id number] #: [id number] Patient: ARIANNA DEE dropped to 140, now about 200 pounds. CURRENT MEDICATIONS 1. Rocephin 2. Lactulose 3. Protonix 4. Coumadin and Lovenox has been discontinued PHYSICAL EXAMINATION GENERAL: Patient is comfortable. ECOG is 0. The patient is pleasant. VITAL SIGNS: Blood pressure 105/70, temperature afebrile, pulse 84, respiratory rate 20. O2 saturation 94%. HEENT: Moist mucosa. Pupils equally reactive to light. Extraocular muscles intact. Sclerae anicteric. No obvious bleeding from nasal mucosa or oral mucosa. Scalp normal. Hearing normal. NECK: No JVD. No lymphadenopathy. LYMPHATIC/HEMATOLOGIC: There is no palpable adenopathy in the neck, axilla or inguinal area. CARDIOVASCULAR: S1, S2. Regular rate and rhythm. No S3 or S4. RESPIRATORY: Chest symmetrical, normal. Clear to auscultation bilaterally. No wheezes, no rales, no rhonchi. No dullness to percussion. ABDOMEN/GASTROINTESTINAL: Abdomen is soft, nontender, nondistended. No hepatosplenomegaly. EXTREMITIES: There is no clubbing, no cyanosis, no edema. No varicose veins. NEUROLOGICAL: Patient is alert, awake and oriented x3. Cranial nerves II-XII are intact. Sensory grossly intact. Motor is 4/5 in all four extremities. Gait is normal. Station is normal. Language is normal. Memory is normal. DTRs +2 in all four extremities. MUSCULOSKELETAL: No joint swelling. No bony tenderness. No muscle tenderness. SKIN: No petechiae, no rash, no ecchymosis. PSYCHIATRIC: No anxiety. No delusions or hallucinations. There is no agitation. Eye contact is normal. Affect is appropriate. There is no flight of ideas. DIAGNOSTIC STUDIES Labs as mentioned above. CT of the head as mentioned above. ASSESSMENT/PLAN This is a 51-year-old female with the following issues: 1. Thrombocytopenia, I reviewed the peripheral smear. It is normal. This is most likely due to sequestration of platelets in the liver. The patient has cirrhosis of the liver. Her platelet count is 27,000, she is not bleeding, she cannot tolerate any anticoagulation, I had extensive discussion with the patient regarding the risk of severe thrombosis, and bleeding. She has thrombocytopenia. If she receive full dose of anticoagulation she may bleed. If platelet count improved to 50,000 she may be able to tolerate a low dose of Lovenox 40 mg subcu b.i.d. She has been taking Lovenox 100 mg subcu daily. At present no anticoagulation, will observe. The patient understands the risks of thrombosis and bleeding both. 2. Anemia, will check iron studies. 3. [employer], she has confusion, this may be due to CVA. Alternate may be due to hepatic encephalopathy, receiving lactulose, ammonia level has been slightly elevated to 36. Unit #: [id number] #: [id number] Patient: ARIANNA DEE 4. GI, the patient has cirrhosis secondary to the alcohol, will follow with the GI team. In the past she has been taking lactulose. Quit recently. DISCUSSION I have had discussion with the patient regarding her condition. As mentioned above, she has thrombocytopenia, she is high risk for bleeding, no anticoagulation now. If the platelet count increases above 50,000 with may be able to tolerate Lovenox. She is going to get a MRI of the brain to evaluate the parenchyma. Dictated by... Irma Sebastian/eddie TD: 02/23/2017 10:04 JOB #: [id number] CONSULTATION REPORT Page 1 of 1 X Eda Llanos MD X CONSULTATION REPORT
--- NOTE | ~2017-02-21 | MR17 ---
[facility] A Service of [facility] RADIOLOGY TEXT RESULTS PATIENT: ARIANNA DEE LOCATION: A 237-01 : 61 UNIT #: [id number] AGE: [address]: Tosin Barakat MD SEX: F ORDER DR: [id number] [facility] [address] [place], [place] [address] [id number] I MR#: [id number] Acc #: [id number] NAME: ARIANNA DEE. : 1965 SEX: F STUDY DATE/TIME: 02/22/2017 9:27 UNIT: C4 ROOM: 464 STUDY DESCRIPTION: MR Brain WWo Contrast Attending Physician: Tosin Barakat M.D. Ordering Physician: Tosin Barakat M.D. Primary Care Physician: No Primary Care Physician MRI CENTER REPORT This report is preliminary unless electronic signature is present. EXAM MRI of the brain with and without contrast dated 02/22/2017. COMPARISON MRI MRA head dated 02/16/2010 HISTORY Left-sided facial droop with a normal CT head on 02/21/2017. Followup. History of hypertension, stroke and seizures. FINDINGS Multisequence multiplanar imaging of the brain was obtained with and without contrast. 20 mL of MultiHance was administered intravenously. GFR measured 73. No acute stroke, space-occupying intracranial mass, mass effect, midline shift or hydrocephalus. Scattered few hyperintense T2-signal lesions are noted in the periventricular white matter, relatively more prominent in biparietal lobes. Chronic T2 signal changes have worsened in the last 7 years. No hydrocephalus, hemorrhage, space-occupying soft tissue mass or midline shift. Small hyperintense T2-signal lesions is noted in the mid left cerebellar hemisphere, also. Thick slices through the sella with the pituitary gland, pineal region, upper cervical spine and the internal auditory canals and the inner ear structures are unremarkable. Status post left cataract surgery. Imaged orbits and the ocular structures and mastoids are within normal limits. Thin coronal T2 sequence through the hippocampal formations demonstrate motion artifact. After giving allowances to it no significant asymmetry, signal change or lesions are identified. Postcontrast sequences demonstrate motion artifact also but they do not demonstrate any enhancing lesions. Minimal paranasal sinus mucosal thickening is seen. Axial and coronal postcontrast sequences were repeated twice. There is some motion STS. [facility] A Service of [facility] RADIOLOGY TEXT RESULTS PATIENT: ARIANNA DEE LOCATION: [place] [address] : [birth year] UNIT #: [id number] AGE: [address]: Tosin Barakat MD SEX: F ORDER DR: artifact. IMPRESSION 1. Scattered few hyperintense T2-signal lesions are noted in the brain, worse in 7 years and likely relating to old insults like microvascular ischemic change and old lacunar infarcts. 2. No acute stroke, solid space-occupying intracranial mass or midline shift. Dictated by... Chaka Stewart M.D. THIS IS AN ELECTRONICALLY VERIFIED REPORT Chaka Stewart M.D. at 02/24/2017 8:41 PM CPR/rnr TD: 02/22/2017 23:57 JOB #: [id number] MRI CENTER REPORT Page 1 of 1 COPY
--- NOTE | ~2017-02-21 | HP ---
Unit #: [id number] #: [id number] Patient: ARIANNA DEE [id number] [address] [address] [id number] I MR#: [id number] NAME: ARIANNA DEE ROOM: 464 Age: 51 Sex: F Admission Date: 02/21/2017 : 1965 Attending Physician: Tosin Barakat M.D. Primary Care Physician: No Primary Care Physician HISTORY AND PHYSICAL HISTORY OF PRESENT ILLNESS The patient is a 51-year-old white female with a history of anemia, type 2 diabetes mellitus, cirrhosis of the liver, hepatitis B, hepatitis C, factor V leiden mutation, history of AFib, hypertension, COPD, GE reflux disease, who presents to the emergency room with acute mental status changes. In the ER, she had multiple findings including but not limited to evidence of a urinary tract infection, polysubstance abuse, hypokalemia, acute kidney injury, markedly elevated LFTs, anemia, thrombocytopenia, two new areas of possible ischemia on CT scan of the head and she is being admitted for further evaluation and therapy. The patient is currently awake, alert, oriented to person, place but not to the date. PAST MEDICAL HISTORY Anemia, type 2 diabetes mellitus, cirrhosis of the liver, hepatitis B, hepatitis C, polysubstance abuse, factor V leiden mutation, history of AFib, hypertension, CVA, COPD, GE reflux disease. PAST SURGICAL HISTORY Vaginal hysterectomy, cholecystectomy, x3, gastric bypass. SOCIAL HISTORY She smokes two packs of cigarettes daily. Prior alcohol use. The patient denies illicit drug use. FAMILY HISTORY Noncontributory. ALLERGIES She has no known listed drug allergies. MEDICATIONS PRIOR TO ADMISSION Unknown but, per the list: 1. Klonopin 1 mg p.o. b.i.d. 2. Oxycodone 15 mg q.i.d. 3. Coumadin 5 mg daily. 4. Lactulose 15 mg four times daily. PHYSICAL EXAMINATION VITAL SIGNS: She has been afebrile. Pulse 84. Respirations 20. Blood pressure 115/70. O2 sat 94% on room air. HEENT: Unremarkable. NECK: Supple without JVD, bruits, adenopathy or thyromegaly. Note was made of a right EJ line. Unit #: [id number] #: [id number] Patient: ARIANNA DEE CHEST: Diffusely decreased breath sounds with expiratory wheezes bilaterally. HEART: Regular rate and rhythm without any murmurs, rubs or gallops. ABDOMEN: Large, soft, nondistended, nontender with positive bowel sounds and no hepatosplenomegaly. EXTREMITIES: No clubbing, cyanosis or edema. GENITOURINARY: Deferred. RECTAL: Deferred. NEUROLOGIC: Otherwise nonlocalizing. DIAGNOSTIC STUDIES LABORATORY: ABG on room air showed a pH of 7.311, pCO2 47, pAO2 72.7. Urinalysis shows 1+ leukocytes, 2+ protein, 50 to 100 WBCs, 1+ bacteria. Urine drug screen was positive for benzodiazepines, opiates, cocaine, amphetamines and TCA. Random blood sugar 83. ETOH less than 5. Tylenol less than 10. CMP was normal except for potassium of 3.2, creatinine 1.5, GFR 39.4, 'AST' [sic] 246, 'AST" [sic] 227, alkaline phosphatase 577. Hemoglobin 11.7 with a low MCV, platelets 33,000. PTT 27.5, INR 1.1. IMAGING: CT scan of the head: Two new subacute hypodense densities in the right mckenzie radiata versus 07/24, positive for atrophy disproportionate for age. IMPRESSION 1. Acute mental status change probably multifactorial. 2. Questionable new CVA on the right. 3. History of old CVA. 4. Hypokalemia. 5. Acute kidney injury. 6. Cirrhosis. 7. Thrombocytopenia. 8. Factor V leiden mutation. 9. Polysubstance abuse. 10. Microcytic anemia. 11. Possible urinary tract infection. 12. History of type 2 diabetes mellitus. 13. History of hepatitis B and C. 14. History of AFib. 15. History of hypertension. 16. COPD. 17. Tobacco use. PLAN Hematology has seen the patient. MRI has been performed but not read. She has been placed on Protonix. We will use SCDs as Hematology has stopped her Coumadin and Lovenox. Ammonia level is ordered. We will also check her magnesium, replace potassium per protocol, use SCDs for DVT prophylaxis and x-ray two views of her left hip because of complaints of pain in that area and poor historian. Dictated by Irma Gay/alanis TD: 02/22/2017 14:53 JOB #: [id number] Unit #: [id number] #: [id number] Patient: ARIANNA DEE HISTORY AND PHYSICAL Page 1 of 1 X Janusz Cheng MD X HISTORY AND PHYSICAL
--- NOTE | ~2017-02-21 | CO ---
Unit #: [id number] #: [id number] Patient: MACI KELLER [id number] [place] [id number] [facility]. [place], [place] [address] [id number] I MR#: [id number] NAME: MACI KELLER ROOM: 464 Age: 51 Sex: F Admission Date: 02/21/2017 : 1965 Attending Physician: Tosin Barakat M.D. Consultation Date: 02/22/2017 CONSULTATION REPORT REASON FOR CONSULTATION Agitation, substance abuse, paranoia, and depression. HISTORY OF PRESENT ILLNESS Ms. Maci Keller is a 51-year-old white female, seen in room 464, bed 1 at [facility] on 02/22/2017. The patient admitted partying with her son and tested positive for benzodiazepine, cocaine, amphetamine, and opioids. The patient was upset about not able to get her pain medication. The patient was sad, mad, angry, upset, and made comments that "I might as well go home and kill myself." The patient was subsequently placed on 72-hour hold, one-on-one sitter for safety. The patient was given 1 mg Klonopin as a now dose. The patient seemed very guarded and paranoid, but denied any auditory or visual hallucination. PAST PSYCHIATRIC HISTORY Remarkable for history of previous treatment at [facility], inpatient, numerous admissions, last admission on 12/04/2016. The patient was last discharged on Neurontin for neuropathy, Proventil, Elavil, and aspirin. The patient carries diagnoses of major depressive disorder, recurrent; alcohol abuse disorder; and opioid use disorder. MEDICAL HISTORY Remarkable for history of anemia, obesity, type 2 diabetes, cirrhosis of liver, hepatitis B, hepatitis C, polysubstance abuse, factor V Leiden mutation, history of AFib, hypertension, CVA, COPD, and gastroesophageal reflux disease. MEDICATIONS The patient is on Klonopin 1 mg b.i.d., oxycodone 15 mg b.i.d., Coumadin, and lactulose. FAMILY HISTORY AND SOCIAL HISTORY The patient has a good support system. No history of abuse. History of substance abuse as mentioned above. The patient was positive for benzodiazepine, cocaine, amphetamine, and opioids. REVIEW OF SYSTEMS Complete review of systems is unremarkable except as mentioned above. MENTAL STATUS EXAMINATION Vital signs; temperature 97.8, pulse 83, respirations 19, blood pressure 135/84, and oxygen saturation 100%. General appearance; the patient is moderately obese, dressed casually in hospital attire, seemed somewhat agitated, anxious, and irritable. Attention span and concentration, poor. Unit #: [id number] #: [id number] Patient: MACI KELLER S Speech; rapid in rate, pressured. Oriented in time, place, and person. Mood and affect, labile. Thought process, circumstantial. Thought content; guarded, paranoid. Making comments about harming herself. Please see above. Denied any homicidal ideation. Recent and remote memory, fair to slightly impaired. Language, fair. Fund of knowledge, fair to slightly impaired. Insight and judgment, fair to slightly impaired. DIAGNOSES Psychiatric: 1. Major depressive disorder, recurrent, severe, F33.2. 2. Opioid use disorder, severe, F11.20. 3. Sedative hypnotic use disorder, severe, F13.20. 4. Cocaine use disorder, severe, F14.20. Secondary diagnosis: Deferred. Medical diagnosis: Please see H and P. Stressors: Psychosocial stressors. ASSESSMENT/PLAN 1. Supportive psychotherapy and psychoeducation provided to the patient. 2. Educated about benefits and side effects of medication and course and prognosis of illness. 3. Advised one-to-one monitoring and 72-hour hold. 4. The patient was advised Neurontin at a lower dosage as she was on a higher dosage of medication, Neurontin 300 mg t.i.d. Advised Zyprexa 10 mg q.12 hours for mood stabilization and psychosis, Ativan 1 mg q.4 hours p.r.n. for severe agitation, Ambien 5 mg p.r.n. for sleep, and haloperidol 5 mg q.6 hours p.r.n. for agitation. We will continue to follow. If needed, consider further adjustment of medication. Please feel free to call if any questions, telephone #[phone]. Dictated by... Gwyn Crump M.D. DAREN/davis TD: 02/23/2017 09:34 JOB #: [id number] CONSULTATION REPORT Page 1 of 1 X Gwyn Crump MD CONSULTATION REPORT
[2017-02-21 17:08] LABS: ARTERIAL BLD GAS O2 SATURATION 90.2 % (90.0-100.0); ARTERIAL BLOOD GAS ALLEN TEST NORMAL; ARTERIAL BLOOD GAS ART SITE RIGHT RADIAL; ARTERIAL BLOOD GAS CARBOXY HB 1.6 %sat (0.0-9.0); ARTERIAL BLOOD GAS HCO3 23.7 mmol/L; ARTERIAL BLOOD GAS MET HB 1.7 %sat (0.0-2.0); ARTERIAL BLOOD GAS PCO2 47.1 mmHg (35.0-45.0); ARTERIAL BLOOD GAS PO2 72.7 mmHg (80.0-100); ARTERIAL BLOOD GAS pH 7.311 (7.350-7.450); ARTERIAL DRAW? YES
[2017-02-21 17:09] LABS: URINE SOURCE CLEAN CATCH
[2017-02-21 17:14] LABS: URINE APPEARANCE CLOUDY; URINE BLOOD NEG (NEG); URINE COLOR DK YELLOW; URINE GLUCOSE NEG (NEG); URINE KETONE NEG (NEG); URINE LEUKOCYTE ESTERASE 1+ (NEG); URINE NITRATE NEG (NEG); URINE PH 5.5 (5-8); URINE PROTEIN 2+ (NEG); URINE SPECIFIC GRAVITY 1.025 (1.003-1.035)
[2017-02-21 17:17] LABS: CULTURE INDICATED? YES; URBCS1 AUWI 0-2 /[HPF] (0-2); URINE BACTERIA AUWI 1+ (NEGATIVE); URINE SQUAMOUS EPITHELIAL CELL OCC /[HPF]; UWBCS1 AUWI 50-100 (0-5)
[2017-02-21 17:18] LABS: BASOPHIL% 0.3 % (0-2.5); EOSINOPHIL# 0.2 X10e3 (0-0.7); EOSINOPHIL% 1.8 % (0.0-7.0); HEMOGLOBIN 11.7 gm/dL (12.0-16.0); LYMPHOCYTE# 0.9 X10e3 (1.0-3.5); LYMPHOCYTE% 9.5 % (17.0-45.0); MEAN CELL VOLUME 79.7 FL (83-96); MEAN CORPUSCULAR HEMOGLOBIN 25.2 PG (28-34); MEAN CORPUSCULAR HGB CONC 31.6 g/dL (30-36); MEAN PLATELET VOLUME 10.6 FL (6.5-11.5); MONOCYTE# 0.5 X10e3 (0-1.0); MONOCYTE% 5.3 % (3.0-12.0); NEUTROPHIL# 7.9 X10e3 (1.5-7.1); NEUTROPHIL% 83.1 % (40-75); RED BLOOD COUNT 4.64 X10e (3.90-5.30); RED CELL DISTRIBUTION WIDTH 19.6 % (11.0-15.5); WHITE BLOOD COUNT 9.5 X10e3 (4.0-10.5)
[2017-02-21 17:30] LABS: AMPHETAMINE POS (NEG); BARBITURATES NEG (NEG); BENZODIAZEPINES POS (NEG); COCAINE POS (NEG); MARIJUANA NEG (NEG); OPIATES POS (NEG); TRICYCLIC ANTIDEPRESSANTS POS (NEG); U METHADONE NEG (NEG)
[2017-02-21 17:30] LABS: DIFF IND YES; PLATELET COUNT 33 X10e3 (140-420)
[2017-02-21 17:31] LABS: ALBUMIN SERUM 3.5 g/dL (3.5-5.0); ALKALINE PHOSPHATASE 577 U/L (32-92); ALT (SGPT) 222 U/L (10-40); AST (SGOT) 246 U/L (10-42); BILIRUBIN, DIRECT 0.9 mg/dL (0.0-0.2); BILIRUBIN,INDIRECT 0.9 mg/dL (0.0-0.9); BILIRUBIN,TOTAL 1.8 mg/dL (0.2-2.0); BLOOD UREA NITROGEN 15 mg/dL (9-23); CALCIUM SERUM 8.2 mg/dL (8.4-10.2); CARBON DIOXIDE 24 mmol/L (22-31); CHLORIDE 111 mmol/L (100-111); CREATININE SERUM 1.5 mg/dL (0.6-1.4); GLOM FILT RATE Estimated 39.4 mL/min (>60); GLUCOSE FASTING 99 mg/dL (70-110); POTASSIUM 3.2 mmol/L (3.5-5.1); PROTEIN TOTAL SERUM 6.5 g/dL (6.0-8.3); SODIUM 142 mmol/L (135-145)
[2017-02-21 17:41] LABS: U HYALINE CASTS AUWI 0-2 /[LPF]; URINE BILIRUBIN NEG (NEG)
[2017-02-21 17:44] LABS: ALCOHOL BLOOD <5 mg/dL (0)
[2017-02-21 17:45] LABS: MICROCYTOSIS SL; PLATELET ESTIMATE DECREASED (NORMAL); RBC NORMAL YES
[2017-02-21 17:46] LABS: ANISOCYTOSIS SL
[2017-02-21] MEDS ORDERED: OXYCODONE15 M1 PO (20:50)
[2017-02-21] MEDS ORDERED: KLONOPIN1 MG PO (20:50)
[2017-02-21] MEDS ORDERED: COUMADIN5 MG PO (20:51)
[2017-02-21] MEDS ORDERED: LACTULOSE10 GM/15 M PO (20:51)
[2017-02-22 06:59] LABS: BASOPHIL% 0.7 % (0-2.5); EOSINOPHIL# 0.1 X10e3 (0-0.7); EOSINOPHIL% 2.1 % (0.0-7.0); HEMATOCRIT 36.7 % (35.0-45.0); HEMOGLOBIN 11.6 gm/dL (12.0-16.0); LYMPHOCYTE# 1.3 X10e3 (1.0-3.5); LYMPHOCYTE% 24.1 % (17.0-45.0); MEAN CELL VOLUME 79.9 FL (83-96); MEAN CORPUSCULAR HEMOGLOBIN 25.3 PG (28-34); MEAN CORPUSCULAR HGB CONC 31.7 g/dL (30-36); MEAN PLATELET VOLUME 10.1 FL (6.5-11.5); MONOCYTE# 0.3 X10e3 (0-1.0); MONOCYTE% 5.5 % (3.0-12.0); NEUTROPHIL# 3.7 X10e3 (1.5-7.1); NEUTROPHIL% 67.6 % (40-75); RED BLOOD COUNT 4.59 X10e (3.90-5.30); RED CELL DISTRIBUTION WIDTH 19.7 % (11.0-15.5); WHITE BLOOD COUNT 5.4 X10e3 (4.0-10.5)
[2017-02-22 07:10] LABS: DIFF IND NO; PLATELET COUNT 27 X10e3 (140-420)
[2017-02-22 07:29] LABS: BUN/CREATININE RATIO 13.33; CREATININE SERUM 0.9 mg/dL (0.6-1.4); POTASSIUM 3.1 mmol/L (3.5-5.1)
[2017-02-22 08:43] LABS: INR 1.1; PROTHROMBIN TIME (PATIENT) 11.9 SECONDS (10.0-11.7)
[2017-02-23 03:35] LABS: HEMATOCRIT 31.3 % (35.0-45.0); HEMOGLOBIN 9.9 gm/dL (12.0-16.0); MEAN CELL VOLUME 79.6 FL (83-96); MEAN CORPUSCULAR HEMOGLOBIN 25.2 PG (28-34); MEAN CORPUSCULAR HGB CONC 31.7 g/dL (30-36); MEAN PLATELET VOLUME 11.5 FL (6.5-11.5); RED BLOOD COUNT 3.93 X10e (3.90-5.30); RED CELL DISTRIBUTION WIDTH 19.3 % (11.0-15.5)
[2017-02-23 04:04] LABS: ALBUMIN SERUM 2.8 g/dL (3.5-5.0); BILIRUBIN,TOTAL 0.6 mg/dL (0.2-2.0); CALCIUM SERUM 7.4 mg/dL (8.4-10.2); CREATININE SERUM 0.6 mg/dL (0.6-1.4); GLOM FILT RATE Estimated 104.1 mL/min (>60); MAGNESIUM 1.7 mg/dL (1.6-3.0); POTASSIUM 3.1 mmol/L (3.5-5.1); PROTEIN TOTAL SERUM 5.1 g/dL (6.0-8.3)
[2017-02-23 04:13] LABS: FERRITIN 21 ng/mL (11-307)
[2017-02-24 03:59] LABS: HEMATOCRIT 30.6 % (35.0-45.0); HEMOGLOBIN 9.6 gm/dL (12.0-16.0); MEAN CELL VOLUME 80.3 FL (83-96); MEAN CORPUSCULAR HEMOGLOBIN 25.1 PG (28-34); MEAN CORPUSCULAR HGB CONC 31.3 g/dL (30-36); MEAN PLATELET VOLUME 10.1 FL (6.5-11.5); RED BLOOD COUNT 3.81 X10e (3.90-5.30); RED CELL DISTRIBUTION WIDTH 19.8 % (11.0-15.5); WHITE BLOOD COUNT 3.2 X10e3 (4.0-10.5)
[2017-02-24 04:21] LABS: ALBUMIN SERUM 2.7 g/dL (3.5-5.0); BILIRUBIN,TOTAL 0.7 mg/dL (0.2-2.0); CALCIUM SERUM 7.4 mg/dL (8.4-10.2); CREATININE SERUM 0.5 mg/dL (0.6-1.4); GLOM FILT RATE Estimated 110.5 mL/min (>60); MAGNESIUM 1.8 mg/dL (1.6-3.0); POTASSIUM 3.2 mmol/L (3.5-5.1); PROTEIN TOTAL SERUM 5.4 g/dL (6.0-8.3)
[2017-02-24 14:42] LABS: PROTHROMBIN TIME (PATIENT) 11.2 SECONDS (10.0-11.7)
[2017-02-25 06:56] LABS: HEMATOCRIT 31.5 % (35.0-45.0); HEMOGLOBIN 9.9 gm/dL (12.0-16.0); MEAN CELL VOLUME 80.9 FL (83-96); MEAN CORPUSCULAR HEMOGLOBIN 25.4 PG (28-34); MEAN CORPUSCULAR HGB CONC 31.4 g/dL (30-36); MEAN PLATELET VOLUME 9.5 FL (6.5-11.5); RED BLOOD COUNT 3.89 X10e (3.90-5.30); RED CELL DISTRIBUTION WIDTH 19.7 % (11.0-15.5); WHITE BLOOD COUNT 3.2 X10e3 (4.0-10.5)
[2017-02-25 07:50] LABS: ALBUMIN SERUM 2.7 g/dL (3.5-5.0); BILIRUBIN,TOTAL 0.6 mg/dL (0.2-2.0); CALCIUM SERUM 7.7 mg/dL (8.4-10.2); CREATININE SERUM 0.4 mg/dL (0.6-1.4); GLOM FILT RATE Estimated 118.9 mL/min (>60); MAGNESIUM 1.8 mg/dL (1.6-3.0); POTASSIUM 3.7 mmol/L (3.5-5.1); PROTEIN TOTAL SERUM 5.2 g/dL (6.0-8.3)
[2017-02-26 05:27] LABS: HEMATOCRIT 32.7 % (35.0-45.0); HEMOGLOBIN 10.3 gm/dL (12.0-16.0); MEAN CELL VOLUME 80.9 FL (83-96); MEAN CORPUSCULAR HEMOGLOBIN 25.5 PG (28-34); MEAN CORPUSCULAR HGB CONC 31.5 g/dL (30-36); MEAN PLATELET VOLUME 9.5 FL (6.5-11.5); RED BLOOD COUNT 4.05 X10e (3.90-5.30); RED CELL DISTRIBUTION WIDTH 20.1 % (11.0-15.5); WHITE BLOOD COUNT 3.2 X10e3 (4.0-10.5)
[2017-02-26 05:38] LABS: INR 1.2; PROTHROMBIN TIME (PATIENT) 13.2 SECONDS (10.0-11.7)
[2017-02-26 06:09] LABS: ALBUMIN SERUM 2.9 g/dL (3.5-5.0); BILIRUBIN,TOTAL 0.6 mg/dL (0.2-2.0); CREATININE SERUM 0.6 mg/dL (0.6-1.4); GLOM FILT RATE Estimated 104.1 mL/min (>60); MAGNESIUM 1.7 mg/dL (1.6-3.0); POTASSIUM 3.9 mmol/L (3.5-5.1); PROTEIN TOTAL SERUM 5.5 g/dL (6.0-8.3)
[2017-02-26] MEDS ORDERED: ELIQUIS2.5 MG PO (16:47)
[2017-02-26] MEDS ORDERED: PRINCIPEN500 M2 PO (16:47)
[2017-02-26] MEDS ORDERED: ACETAMINOPHEN PO (16:52)
== END 2017-02-26 19:08 | disposition home health service (06) | DRG 683 ==
LOC: CED 16:14 → CEDOF 20:15 → CED 20:21 → C4C 02-22 13:22 → CEDOF 02-22 13:22 → C2A 02-24 11:35
PROVIDERS: Internal Medicine; Internal Medicine Hematology; Physician Assistant Medical; Student in an Organized Health Care Education/Training Program
PROC: 02HV33Z Insertion of Infusion Device into Superior Vena Cava, Percutaneous Approach (ICD-10-PCS; principal; 2017-02-22)
DX: N17.9 Acute kidney failure, unspecified (principal); N39.0 Urinary tract infection, site not specified; D68.51 Activated protein C resistance; E87.0 Hyperosmolality and hypernatremia; F33.2 Major depressive disorder, recurrent severe without psychotic features; D69.6 Thrombocytopenia, unspecified; E11.40 Type 2 diabetes mellitus with diabetic neuropathy, unspecified; F11.20 Opioid dependence, uncomplicated; F13.20 Sedative, hypnotic or anxiolytic dependence, uncomplicated; F14.20 Cocaine dependence, uncomplicated; Z86.73 Personal history of transient ischemic attack (TIA), and cerebral infarction without residual deficits; E87.6 Hypokalemia; E83.42 Hypomagnesemia; D64.9 Anemia, unspecified; Z79.01 Long term (current) use of anticoagulants; I48.91 Unspecified atrial fibrillation; I10 Essential (primary) hypertension; F17.210 Nicotine dependence, cigarettes, uncomplicated; K21.9 Gastro-esophageal reflux disease without esophagitis
CPT/HCPCS: 36415; 36600; 70450; 70553; 71010; 73502; 80048; 80053; 80076; 80307; 81003; 82140; 82607; 82728; 82803; 82947; 83540; 83550; 83735; 84132; 85025; 85027; 85610; 85730; 87086; 87088; 87186; 94640; 94760; 96374; 97116; 97163; 97166; 97530; 99285; A9577; C9113; G0480; G8978-GP; G8979-GP; G8987-GO; G8988-GO; G8989-GO; J0696; J1650; J2310; J2916; J3475

== ENCOUNTER 2017-03-14 10:00 | Inpatient (IN) | payer MEDICARE ==
--- NOTE | ~2017-03-14 | CO ---
Unit #: [id number] #: [id number] Patient: ARIANNA DEE [id number] [facility] [address] [place] [address] [id number] MR#: [id number] NAME: ARIANNA DEE. ROOM: P256 Age: 51 Sex: F Admission Date: 03/14/2017 : 1965 Attending Physician: Cheryl Villa M.D. Primary Care Physician: Primary Care Physician No Consultation Date: 03/15/2017 CONSULTATION REPORT ORDERING PROVIDER Cheryl Villa M.D. REASON FOR CONSULTATION Coumadin management. SUBJECTIVE The patient's INR today noted to be 1.4. She had previously been on 5 mg Coumadin. We will increase her dose to 7.5 mg daily and recheck tomorrow. Dictated by... Aida Spivey/davis TD: 03/16/2017 22:50 JOB #: [id number] CONSULTATION REPORT Page 1 of 1 X MARISOL NORRIS APRN CONSULTATION REPORT
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
--- NOTE | ~2017-03-14 | PN ---
Unit #: [id number] #: [id number] Patient: ARIANNA KELLER [id number] [facility] [address] [place] [address] [id number] I MR#: [id number] NAME: ARIANNA KELLER. ROOM: P256 Age: 51 Sex: F Admission Date: 03/14/2017 : 1965 Attending Physician: Cheryl Villa M.D. Admitting Physician: Cheryl Villa M.D. Primary Care Physician: Primary Care Physician Ami DANGELO NOTES DATE OF SERVICE: 03/16/2017 SUBJECTIVE Ms. Keller is a 51-year-old white female who was seen today and chart was reviewed, and case was discussed with the staff. She has been anxious, withdrawn, and rather seclusive to herself. Meanwhile, she has been cooperative with treatment recommendations and has been taking the medications and tolerating them fairly well with no reported side effects. MENTAL STATUS EXAMINATION Middle-aged white female who was casually dressed with fair personal hygiene, appears to be in no acute distress or discomfort. She was awake and alert on interaction with intact orientation. Her mood was anxious with a congruent affect. She denies any suicidal or homicidal ideations. Her insight and judgment remain slightly impaired. TREATMENT PLAN 1. We will continue on her current medications and treatment protocol. We will monitor her response and make further adjustments as needed. 2. We will continue to follow up. Dictated by... Irma Sofia/davis TD: 03/16/2017 12:46 JOB #: [id number] [facility] PROGRESS NOTES Page 1 of 1 X Cheryl Villa MD PROGRESS NOTE
--- NOTE | ~2017-03-14 | PN ---
Unit #: [id number] #: [id number] Patient: ARIANNA KELLER [id number] [facility] [address] [place] [address] [id number] I MR#: [id number] NAME: ARIANNA KELLER. ROOM: P256 Age: 51 Sex: F Admission Date: 03/14/2017 : 1965 Attending Physician: Cheryl Villa M.D. Admitting Physician: Cheryl Villa M.D. Primary Care Physician: Primary Care Physician Ami DANGELO NOTES DATE OF SERVICE: 03/18/2017 SUBJECTIVE Ms. Keller is a 51-year-old white female, who was seen today and chart was reviewed and case was discussed with staff. She has been anxious, withdrawn, and rather seclusive to herself. Meanwhile, she has been cooperative with treatment recommendations and has been taking the medications and tolerating them fairly well with no reported side effects. MENTAL STATUS EXAMINATION Middle-aged white female who was casually dressed with fair personal hygiene, appears to be in no acute distress or discomfort. She was awake and alert on interaction with intact orientation. Her mood was anxious with a congruent affect. She denies any suicidal or homicidal ideation. Her insight and judgment remain slightly impaired. TREATMENT PLAN 1. We will continue on her current medications and treatment protocol. We will monitor her response and make further adjustments as needed. 2. We will continue to follow up. Dictated by... Irma Sofia/davis TD: 03/19/2017 02:01 JOB #: [id number] [facility] PROGRESS NOTES Page 1 of 1 X Cheryl Villa MD PROGRESS NOTE
--- NOTE | ~2017-03-14 | DS ---
Unit #: [id number] #: [id number] Patient: ARIANNA KELLER [id number] [facility] [address] [place] [address] [id number] I MR#: [id number] NAME: ARIANNA KELLER. ROOM: P256 Age: 51 Sex: F Admission Date: 03/14/2017 : 1965 Discharge Date: 03/20/2017 Attending Physician: Cheryl Villa M.D. Primary Care Physician: Primary Care Physician No DISCHARGE SUMMARY IDENTIFICATION DATA Ms. Keller is a 51-year-old disabled white female who is a resident of [place], [place], and is known to us from a previous encounter and was self-referred to the hospital. DISCHARGE DIAGNOSES PSYCHIATRIC: Major depressive disorder, recurrent, moderate, without psychotic features. MEDICAL: Hypertension. Hepatitis C. Cirrhosis of the liver. Congestive heart failure. Status post cerebrovascular accident. STRESSORS: Mild psychosocial stressors. HISTORY OF PRESENT ILLNESS Same as in initial psychiatric evaluation. PAST PSYCHIATRIC HISTORY Same as in initial psychiatric evaluation. PAST MEDICAL HISTORY Same as in initial psychiatric evaluation. HOSPITAL COURSE The patient was [facility] and was oriented to the hospital environment. Routine p.r.n. medications were initiated, and she was started back on her home medications, and medications were adjusted, and she was also started on Elavil (1) __ was closely monitored. She was taking the medications regularly and was tolerating them fairly well and was able to show a decent therapeutic response with improvement in depression and anxiety and was willing to continue treatment on outpatient basis. As such, it was decided that she will be discharged home and continue treatment on outpatient basis. DISCHARGE MEDICATIONS 1. Ambien 10 mg at bedtime for sleep. 2. Elavil 100 mg at bedtime for depression. CONDITION AT DISCHARGE Stable. PROGNOSIS Fair. Unit #: [id number] #: [id number] Patient: ARIANNA KELLER Dictated by... Cheryl Villa M.D. IAA/bzg TD: 03/20/2017 08:08 JOB #: [id number] DISCHARGE SUMMARY Page 1 of 1 X Cheryl Villa MD DISCHARGE SUMMARY
--- NOTE | ~2017-03-14 | PN ---
Unit #: [id number] #: [id number] Patient: ARIANNA KELLER [id number] [facility] [address] [place] [address] [id number] I MR#: [id number] NAME: ARIANNA KELLER. ROOM: P256 Age: 51 Sex: F Admission Date: 03/14/2017 : 1965 Attending Physician: Cheryl Villa M.D. Admitting Physician: Cheryl Villa M.D. Primary Care Physician: Primary Care Physician Ami DOE PROGRESS NOTES DATE 03/19/2017 DISCUSSION Ms. Keller is a 51-year-old white female with mood disorder who was seen today and chart was reviewed and case was discussed with the staff. She has been anxious, withdrawn, depressed and rather seclusive to herself and has been expressing feelings of hopelessness and helplessness. Meanwhile, she has been taking medications and tolerating them fairly well with no reported side effects. MENTAL STATUS EXAMINATION Middle-aged white female who was casually dressed with fair personal hygiene and appears to be in no acute distress or discomfort. She was awake and alert with impaired attention and concentration. Her mood was anxious with congruent affect. She denies any suicidal or homicidal ideations. Her insight and judgement remains slightly impaired. TREATMENT PLAN 1. Will continue on treatment protocol. Will monitor her response to the medications and make further adjustments as needed. 2. Will continue to follow up. Dictated by... Irma Sofia/ramila TD: 03/19/2017 18:02 JOB #: [id number] Unit #: [id number] #: [id number] Patient: ARIANNA KELLER PROGRESS NOTES Page 1 of 1 X Cheryl Villa MD PROGRESS NOTE
--- NOTE | ~2017-03-14 | PN ---
Unit #: [id number] #: [id number] Patient: ARIANNA KELLER [id number] [facility] [address] [place] [address] [id number] MR#: [id number] NAME: ARIANNA KELLER. ROOM: P256 Age: 51 Sex: F Admission Date: 03/14/2017 : 1965 Attending Physician: Cheryl Villa M.D. Admitting Physician: Irma Sofia PROGRESS NOTES DATE OF SERVICE: 03/15/2017 SUBJECTIVE Ms. Keller is a 51-year-old white female who was seen today and chart was reviewed and case was discussed with the staff. She has been anxious, withdrawn, and seclusive to herself with persistent depression and anxiety, and feelings of hopelessness. Meanwhile, she has been cooperative with treatment recommendations and has been taking tolerating them fairly well. MENTAL STATUS EXAMINATION Middle-aged white female who was casually dressed with fair personal hygiene, appears to be in no acute distress or discomfort. She was awake and alert with impaired attention and concentration. Her mood was anxious with a congruent affect . Her insight and judgment remain slightly impaired. TREATMENT PLAN 1. We will continue on her current medications and treatment protocol. We will monitor her response to medications and make further adjustments as needed. 2. We will continue to follow up. Dictated by... Irma Sofia/davis TD: 03/15/2017 16:23 JOB #: [id number] Unit #: [id number] #: [id number] Patient: ARIANNA KELLER PROGRESS NOTES Page 1 of 1 X Cheryl Villa MD PROGRESS NOTE
--- NOTE | ~2017-03-14 | HP ---
Unit #: [id number] #: [id number] Patient: MACI DEE [id number] [place] [address] [id number] MR#: [id number] NAME: MACI DEE. ROOM: [facility] Age: 51 Sex: F Admission Date: 03/14/2017 : 1965 Attending Physician: Cheryl Villa M.D. Admitting Physician: Cheryl Villa M.D. Primary Care Physician: Primary Care Physician No HISTORY AND PHYSICAL HISTORY OF PRESENT ILLNESS Maci is a 51 year old admitted to [address] [place] [address] with depression and verbalizing wanting to hurt herself. She has had numerous admissions to this facility for the same. PAST MEDICAL HISTORY 1. Morbid obesity. 2. Factor V Leiden. 3. History of atrial fib. a. Chronic anticoagulation therapy. She was recently changed to Coumadin. 4. History of CVA. 5. History of polysubstance abuse to include alcohol and cocaine. She denies anything currently. 6. High blood pressure. 7. COPD. 8. GERD. 9. History of withdrawal seizures. PAST SURGICAL HISTORY 1. Gastric bypass. 2. Cholecystectomy. 3. x3. 4. Vaginal hysterectomy. ALLERGIES No known drug allergies. SOCIAL HISTORY Smokes 1 pack per day. Has a history of polysubstance abuse but denies anything currently. FAMILY HISTORY Medically noncontributory. REVIEW OF SYSTEMS CONSTITUTIONAL: No fever or chills. HEENT: Denies any sore throat, ear pain or runny nose. CARDIOVASCULAR: Denies chest pain, irregular heart rhythm or palpitations. CHEST: Denies shortness of breath or cough. No hemoptysis. GASTROINTESTINAL: Denies nausea, vomiting, diarrhea or chronic constipation. ENDOCRINE: Denies history of increased thirst or urination. No recent Unit #: [id number] #: [id number] Patient: MACI DEE significant weight loss or gain. GENITOURINARY: Denies dysuria, frequency, or hematuria. SKIN: Denies any rashes. HEMATOLOGIC: Denies history of increased bleeding or bruising. MUSCULOSKELETAL: Denies any hot, swollen joints. No generalized muscle pain. NEUROLOGIC: Denies problems with vision or speech. No frequent, severe headaches. No numbness, tingling or weakness in any extremities. Denies loss of bladder or bowel control. CURRENT MEDICATIONS 1. Ambien 10 mg q.h.s. 2. Lactulose 10 grams q.i.d. 3. Oxycodone 15 mg daily. 4. Milk of Magnesia p.r.n. 5. Maalox p.r.n. 6. Flomax 0.4 mg daily. 7. Nicotine patch 14 mg daily. PHYSICAL EXAMINATION GENERAL: Alert, obese, in no apparent distress. VITAL SIGNS: Blood pressure 156/76, heart rate 80, respirations 16, temperature 98.6. WEIGHT: 197. HEIGHT: 5 feet 4 inches. SKIN: Warm and dry without rash or lesion. HEENT: Normocephalic. TMs not viewed. Oral and nasal passages clear. Conjunctivae clear. PERRLA. EOMs intact. NECK: Supple without lymphadenopathy or thyromegaly. HEART: Regular rate and rhythm without murmur. LUNGS: Clear. ABDOMEN: Soft, nontender. : Not done. EXTREMITIES: No evidence of cyanosis, clubbing or edema. Moves all without focal deficit. NEUROLOGICAL: Grossly within normal limits. Cranial Nerves: II: Visual hargrove are intact. III, IV AND : Extraocular movements are intact. Pupils are equal, round and reactive to light. V: Facial sensation is grossly normal. VII: Facial movements and expression are normal. VIII: Auditory acuity grossly intact. IX, X: Uvula is midline. Phonation is normal. XI: Patient shrugs shoulders and turns head normally. XII: Tongue protrudes in the midline. Sensory and Motor Function: Sensory and motor sensation is grossly normal. Motor: moves all extremities well. Coordination: Gait is normal. Deep Tendon Reflexes: Intact. IMPRESSION 1. Psychiatric admission. 2. Patient is on chronic anticoagulation therapy. Her Coumadin has not been continued. We need to resume this. RECOMMENDATIONS PSYCHIATRIC: Per psychiatrist. MEDICAL: 1. See no contraindication to participate in facility's activities. 2. Resume Coumadin 5 mg daily. Check PT/INR. Unit #: [id number] #: [id number] Patient: MACI DEE MEDICAL PROGNOSIS Good. MEDICAL CONDITION Stable. Dictated by... Carlene Marcos P.A.-C. for Irma Elmore/ramila TD: 03/15/2017 15:06 JOB #: [id number] HISTORY AND PHYSICAL Page 1 of 1 X Carlene Marcos HISTORY AND PHYSICAL
--- NOTE | ~2017-03-14 | PN ---
Unit #: [id number] #: [id number] Patient: ARIANNA KELLER [id number] [facility] [address] [place] [address] [id number] MR#: [id number] NAME: ARIANNA KELLER. ROOM: P256 Age: 51 Sex: F Admission Date: 03/14/2017 : 1965 Attending Physician: Cheryl Villa M.D. Admitting Physician: Cheryl Villa M.D. Primary Care Physician: Primary Care Physician Ami DOE PROGRESS NOTES DATE March 17, 2017 DISCUSSION Ms. Keller is a 51-year-old white female, who was seen today and chart was reviewed and the case was discussed with the staff. She has been anxious, withdrawn, and depressed and rather seclusive to herself. Meanwhile, she has been taking medications and tolerating them fairly well with no reported side effects. MENTAL STATUS EXAMINATION Middle-aged white female, who was casually dressed with fair personal hygiene and appears to be in no acute distress or discomfort. She was awake and alert on interaction with intact orientation. Her mood was anxious with a congruent affect. Her speech is slow and goal-directed. She reports having suicidal ideations but denies any homicidal ideations. Her insight and judgment remain slightly impaired. TREATMENT PLAN 1. We will continue her on her current medications and treatment protocol, and will monitor her response to the medications, and make further adjustments as needed. 2. We will continue to followup. Dictated by... Irma Sofia/eddie TD: 03/17/2017 11:54 JOB #: [id number] Unit #: [id number] #: [id number] Patient: ARIANNA KELLER PROGRESS NOTES Page 1 of 1 X Cheryl Villa MD PROGRESS NOTE
[~2017-03-14 10:00] MED LIST: ACETAMINOPHEN PO; COUMADIN5 MG PO; ELIQUIS2.5 MG PO; KLONOPIN1 MG PO; LACTULOSE10 GM/15 M PO; OXYCODONE15 M1 PO; PRINCIPEN500 M2 PO
[2017-03-15 14:00] LABS: BASOPHIL% 0.6 % (0-2.5); EOSINOPHIL# 0.1 X10e3 (0-0.7); EOSINOPHIL% 1.7 % (0.0-7.0); HEMATOCRIT 44.7 % (35.0-45.0); HEMOGLOBIN 14.1 gm/dL (12.0-16.0); LYMPHOCYTE# 1.9 X10e3 (1.0-3.5); LYMPHOCYTE% 29.9 % (17.0-45.0); MEAN CELL VOLUME 83.1 FL (83-96); MEAN CORPUSCULAR HEMOGLOBIN 26.3 PG (28-34); MEAN CORPUSCULAR HGB CONC 31.6 g/dL (30-36); MEAN PLATELET VOLUME 9.1 FL (6.5-11.5); MONOCYTE# 0.2 X10e3 (0-1.0); MONOCYTE% 3.4 % (3.0-12.0); NEUTROPHIL# 4.1 X10e3 (1.5-7.1); NEUTROPHIL% 64.4 % (40-75); PLATELET COUNT 218 X10e3 (140-420); RED BLOOD COUNT 5.38 X10e (3.90-5.30); RED CELL DISTRIBUTION WIDTH 21.4 % (11.0-15.5); WHITE BLOOD COUNT 6.4 X10e3 (4.0-10.5)
[2017-03-15 14:19] LABS: DIFF IND NO
[2017-03-15 14:56] LABS: ALBUMIN SERUM 3.9 g/dL (3.5-5.0); BILIRUBIN,TOTAL 0.8 mg/dL (0.2-2.0); BUN/CREATININE RATIO 22.85; CALCIUM SERUM 8.7 mg/dL (8.4-10.2); CREATININE SERUM 0.7 mg/dL (0.6-1.4); GLOM FILT RATE Estimated 98.9 mL/min (>60); PROTEIN TOTAL SERUM 6.9 g/dL (6.0-8.3)
[2017-03-15 15:17] LABS: INR 1.2; PROTHROMBIN TIME (PATIENT) 12.6 SECONDS (10.0-11.7)
[2017-03-16 11:40] LABS: INR 1.4; PROTHROMBIN TIME (PATIENT) 15.3 SECONDS (10.0-11.7)
[2017-03-16 11:56] LABS: URINE APPEARANCE CLEAR; URINE BILIRUBIN NEG (NEG); URINE BLOOD NEG (NEG); URINE COLOR YELLOW; URINE GLUCOSE NEG (NEG); URINE KETONE NEG (NEG); URINE LEUKOCYTE ESTERASE TRACE (NEG); URINE NITRATE NEG (NEG); URINE PH 6.5 (5-8); URINE PROTEIN NEG (NEG); URINE SPECIFIC GRAVITY 1.011 (1.003-1.035); URINE UROBILINOGEN 0.2 MG/DL (NEG)
[2017-03-16 11:59] LABS: URINE BACTERIA AUWI NEG (NEGATIVE); URINE SQUAMOUS EPITHELIAL CELL NONE SEEN /[HPF]
[2017-03-16 12:12] LABS: AMPHETAMINE NEG (NEG); BARBITURATES NEG (NEG); BENZODIAZEPINES POS (NEG); COCAINE NEG (NEG); MARIJUANA NEG (NEG); OPIATES NEG (NEG); TRICYCLIC ANTIDEPRESSANTS NEG (NEG); U METHADONE NEG (NEG)
[2017-03-17 09:50] LABS: INR 1.5; PROTHROMBIN TIME (PATIENT) 16.1 SECONDS (10.0-11.7)
[2017-03-18 09:51] LABS: INR 1.7; PROTHROMBIN TIME (PATIENT) 18.5 SECONDS (10.0-11.7)
[2017-03-19 09:53] LABS: PROTHROMBIN TIME (PATIENT) 21.5 SECONDS (10.0-11.7)
== END 2017-03-20 11:10 | disposition home or self-care (01) | DRG 885 ==
LOC: P2L 13:20
PROVIDERS: Family Medicine; Psychiatry & Neurology Psychiatry
DX: F33.1 Major depressive disorder, recurrent, moderate (principal); I11.0 Hypertensive heart disease with heart failure; I50.9 Heart failure, unspecified; D68.51 Activated protein C resistance; I10 Essential (primary) hypertension; J44.9 Chronic obstructive pulmonary disease, unspecified; K21.9 Gastro-esophageal reflux disease without esophagitis; E66.01 Morbid (severe) obesity due to excess calories; F17.210 Nicotine dependence, cigarettes, uncomplicated
CPT/HCPCS: 80053; 80307; 81003; 82947; 85025; 85610